=== PATIENT | female | born 1995 | race Caucasian/White ===

== ENCOUNTER 2020-04-25 02:04 | Emergency (ER) | payer SELFPAY ==
[2020-04-25] MEDS ORDERED: PROMETHAZINE HCL INJ 25 MG/1 ML VIAL IM ONE (02:39)
[2020-04-25] MEDS ORDERED: NORMAL SALINE 1000 ML 1,000 ML IV ONE (02:40)
--- NOTE | 2020-04-25 02:42 | ER Document Report ---
ED General - General Chief Complaint: Altered Mental Status Stated Complaint: ALTERED MENTAL STATUS Time Seen by Provider: 04/25/20 02:33 Notes: Patient is a 24-year-old female who comes to the emergency department for chief complaint of possible substance abuse. Reportedly patient was at a hotel and acting strangely, hotel staff called ambulance, EMS brought patient to the emergency department. Patient states that she was emotionally upset and "took a Xanax bar". She also reports that she drank "a shot of alcohol earlier in the night a while ago". She denies recreational drugs otherwise. She states she is not prescribed any medications. She denies diagnosed medical history. She denies . She denies any complaints at this time. Past Medical History - General Information source: Patient - Social History Smoking Status: Current Every Day Smoker Chew tobacco use (# tins/day): No Frequency of alcohol use: Social Drug Abuse: Marijuana, Prescription drugs Lives with: Family Family History: Reviewed & Not Pertinent Past Surgical History: Reports: Hx Herniorrhaphy - As a child - Immunizations Immunizations up to date: Yes Hx Diphtheria, Pertussis, Tetanus Vaccination: Yes Review of Systems - Review of Systems Constitutional: No symptoms reported EENT: No symptoms reported Cardiovascular: No symptoms reported Respiratory: No symptoms reported Gastrointestinal: No symptoms reported Genitourinary: No symptoms reported Female Genitourinary: No symptoms reported Musculoskeletal: No symptoms reported Skin: No symptoms reported Hematologic/Lymphatic: No symptoms reported Neurological/Psychological: See HPI Physical Exam - Vital signs Vitals: Temp 98.1 F 04/25/20 02:05 - Notes Notes: GENERAL: Patient is awake, cooperative, interactive, however she is very restless, chewing on her monitor cords, placing stickers on her forehead, slurring her speech HEAD: Normocephalic, atraumatic. EYES: Pupils equal, round, and reactive to light. Extraocular movements intact. ENT: Oral mucosa moist, tongue midline. Oropharynx unremarkable. Airway patent. NECK: Full range of motion. Supple. Trachea midline. No lymphadenopathy. LUNGS: Clear to auscultation bilaterally, no wheezes, rales, or rhonchi. No respiratory distress. Non-tender chest wall. HEART: Regular rate and rhythm. No murmur ABDOMEN: Soft, non-tender. Non-distended. EXTREMITIES: Moves all 4 extremities spontaneously. No edema, normal radial and dorsalis pedis pulses bilaterally. No cyanosis. BACK: no cervical, thoracic, lumbar midline tenderness. No saddle anesthesia, normal distal neurovascular exam. Moves all extremities in full range of motion. NEUROLOGICAL: Oriented to person, place, events, but difficult to understand history clearly. Slurred speech. Cranial nerves II through XII grossly intact. Strength 5/5 in all extremities. PSYCH: Very restless SKIN: Warm, dry, normal turgor. No rashes or lesions noted. Course - Re-evaluation Re-evalutation: 04/25/20 02:40 Patient restless, chewing on cords, pulling off monitor, trying to get out of bed. However she also has slow slurred speech and appears slightly drowsy. Patient certainly appears to be under the influence of something. She does not have pinpoint pupils, they are slightly dilated. She is not tachycardic or febrile. Blood pressure slightly borderline but patient is restless and it is difficult to take the blood pressure. Work-up pending, patient will be monitored. 04/25/20 06:15 Patient has been reevaluated twice. She is sleeping peacefully, easily aroused, but when she does so she is still very lethargic and still has some slurring of her words. Patient will need more time. Patient receiving IV fluids. CBC, chemistry unremarkable, test negative, alcohol negative. Patient denies SI or HI, patient will need conversation for disposition when she is completely sober. 04/25/20 08:00 Sign out given to Gideon Cartwright HOUSE RN pending disposition. - Vital Signs Vital signs: Temp Pulse Resp BP Pulse Ox 98.1 F 92/62 L 100 04/25/20 02:05 04/25/20 02:08 04/25/20 02:09 - Laboratory Results Result Diagrams: 04/25/20 04:42 04/25/20 04:42 Laboratory Results Interpreted: 04/25/20 04/25/20 04:42 04:42 WBC 11.3 H Eos % (Auto) 10.2 H Absolute Eos (auto) 1.1 H AST 42 H Acetaminophen < 10 L Critical Laboratory Results Reviewed: No Critical Results - Radiology Results Critical Radiology Results Reviewed: No Critical Results - EKG Interpretation by Me Additional EKG results interpreted by me: EKG shows sinus rhythm at a rate of 55, QTC 452, normal axis, no T wave inversions or ST segment changes in consecutive leads Discharge - Discharge Clinical Impression: Substance abuse Condition: Stable Disposition: HOME, SELF-CARE Additional Instructions: Do not take any medications that are not prescribed to you, avoid any illegal/recreational substances, these are extremely dangerous and continued use will lead to your . Follow-up with primary care for additional evaluation and management. Return for any concerning symptoms including difficulty breathing chest pain, vomiting, fever, or if something is not right. Forms: Return to Work
[2020-04-25 04:57] LABS: ABSOLUTE BASOPHILS # (AUTO) 0.1 10^3/uL (0.0-0.2); ABSOLUTE EOSINOPHILS # (AUTO) 1.1 10^3/uL (0.0-0.6); ABSOLUTE LYMPHOCYTES (AUTO) 4.5 10^3/uL (0.5-4.7); ABSOLUTE MONOCYTES (AUTO) 0.8 10^3/uL (0.1-1.4); ABSOLUTE NEUT (AUTO) 4.8 10^3/uL (1.7-8.2); BASOPHILS % (AUTO) 0.6 % (0-2); EOSINOPHILS % (AUTO) 10.2 % (0-6); HEMOGLOBIN 13.6 g/dL (12.0-15.5); LYMPHOCYTES % (AUTO) 39.5 % (13-45); MEAN CORPUSCULAR HEMOGLOBIN 29.3 pg (27.0-33.4); MEAN CORPUSCULAR HGB CONC 34.1 g/dL (32.0-36.0); MEAN CORPUSCULAR VOLUME 86 fl (80-97); MONOCYTES % (AUTO) 6.7 % (3-13); PLATELET COUNT 262 10^3/uL (150-450); RED BLOOD COUNT 4.65 10^6/uL (3.72-5.28); RED CELL DISTRIBUTION WIDTH 12.9 % (11.5-14.0); TOTAL CELLS COUNTED % (AUTO) 100 %; WHITE BLOOD COUNT 11.3 10^3/uL (4.0-10.5)
[2020-04-25 05:09] LABS: ALBUMIN 4.5 g/dL (3.5-5.0); ALKALINE PHOSPHATASE 68 U/L (38-126); ANION GAP 7 (5-19); ASPARTATE AMINO TRANSFERASE 42 U/L (14-36); BILIRUBIN,DIRECT 0.2 mg/dL (0.0-0.4); BILIRUBIN,TOTAL 0.6 mg/dL (0.2-1.3); BLOOD UREA NITROGEN 15 mg/dL (7-20); CALCIUM 9.8 mg/dL (8.4-10.2); CARBON DIOXIDE 30 mmol/L (22-30); CHLORIDE 100 mmol/L (98-107); GLUCOSE 94 mg/dL (75-110); POTASSIUM 4.4 mmol/L (3.6-5.0); SALICYLATE 2.2 mg/dL (2.0-20.0); TOTAL PROTEIN 7.7 g/dL (6.3-8.2)
[2020-04-25 05:19] LABS: ACETAMINOPHEN < 10 ug/mL (10-30); ALCOHOL < 10 mg/dL (NONE DETECTED)
--- NOTE | 2020-04-25 07:19 | EKG REPORT ---
SEVERITY:- OTHERWISE NORMAL ECG - SINUS BRADYCARDIA BORDERLINE RIGHT AXIS DEVIATION : Confirmed by: Luiz Man MD 25-Apr-2020 07:18:32
[2020-04-25 09:40] LABS: APPEARANCE,URINE CLEAR; BILIRUBIN,URINE NEGATIVE (NEGATIVE); COLOR,URINE ORANGE; GLUCOSE, URINE NEGATIVE (NEGATIVE); KETONES,URINE NEGATIVE (NEGATIVE); LEUKOCYTE ESTERASE,URINE NEGATIVE (NEGATIVE); NITRITE,URINE POSITIVE (NEGATIVE); PROTEIN,URINE NEGATIVE (NEGATIVE); URINE SPECIFIC GRAVITY 1.011; UROBILINOGEN,URINE NEGATIVE mg/dL (<2.0)
[2020-04-25 09:52] LABS: URINE AMPHETAMINES SCREEN NEGATIVE; URINE BARBITURATES SCREEN NEGATIVE; URINE COCAINE SCREEN NEGATIVE; URINE METHADONE SCREEN NEGATIVE; URINE PHENCYCLIDINE SCREEN NEGATIVE
[2020-04-25 09:54] LABS: URINE BENZODIAZEPINES SCREEN UNCONFIRMED POSITIVE; URINE MARIJUANA (THC) SCREEN UNCONFIRMED POSITIVE
--- NOTE | 2020-04-25 09:59 | RADIOLOGY REPORT (SQ) ---
EXAM DESCRIPTION: CT HEAD WITHOUT IMAGES COMPLETED DATE/TIME: 04/25/2020 9:40 am REASON FOR STUDY: AMS COMPARISON: None. TECHNIQUE: Axial images acquired through the brain without intravenous contrast. Images reviewed wi th bone, brain and subdural windows. Images stored on PACS. All CT scanners at this facility use dose modulation, iterative reconstruction, and/or weight based d osing when appropriate to reduce radiation dose to as low as reasonably achievable (ALARA). [facility]: Dose Right [facility]: CareDose [facility]: Dose Right [facility]: Teradose 4D [facility]: Verimatrix RADIATION DOSE: CT Rad equipment meets quality standard of care and radiation dose reduction techniq ues were employed. CTDIvol: 53.2 mGy. DLP: 1070 mGy-cm. mGy. LIMITATIONS: None. FINDINGS: VENTRICLES: Normal size and contour. CEREBRUM: No masses. No hemorrhage. No midline shift. No evidence for acute infarction. Normal gra y/white matter differentiation. No areas of low density in the white matter. CEREBELLUM: No masses. No hemorrhage. No alteration of density. No evidence for acute infarction. EXTRAAXIAL SPACES: No fluid collections. No masses. ORBITS AND GLOBE: No intra- or extraconal masses. Normal contour of globe without masses. CALVARIUM: No fracture. PARANASAL SINUSES: No fluid or mucosal thickening. Scattered ethmoid air cell opacities are demonstr ated. SOFT TISSUES: No mass or hematoma. OTHER: No other significant finding. IMPRESSION: NORMAL BRAIN CT WITHOUT CONTRAST. EVIDENCE OF ACUTE STROKE: NO. COMMENT: Quality ID # [id number]: Final reports with documentation of one or more dose reduction techniques (e.g., Automated exposure control, adjustment of the mA and/or kV according to patient size, use of iterative reconstruction technique) TECHNICAL DOCUMENTATION: JOB ID: [id number] 2010 [employer]- All Rights Reserved Reading location - IP/workstation name: [id number]
[2020-04-25] MEDS ORDERED: CEPHALEXIN 500 MG CAPSULE PO ONE (12:56)
[2020-04-25 13:21] VITALS: BP 113/51
--- NOTE | 2020-04-25 17:37 | PSYCHOLOGICAL NOTE ---
Psych Note - Psych Note Date seen by psych provider: 04/25/20 Time seen by psych provider: 10:44 Psych Note: Reason for Consult: unknown; substance use [id number] Patient is a 24 year old female who was admitted to the ED via EMS. She denies suicidal and homicidal ideation, plan, and intent. She reports being at a hotel prior to coming here, but is not entirely sure why she came to the ED. Patient reports no mental health history. She denies suicide attempts or medication management. She reports she went to rehab a few years ago. She reports using opioids such as heroine and fentanyl, Xanax bars, and weed. When asked who patient lives with, she notes she is homeless and has been staying in a hotel with her boyfriend. Patient cannot find her cell phone and presents upset about not knowing where it is or how to get in touch with her boyfriend. She states she has a friend who lives off [facility] and states this is a good friend named, Anabelle. She was picked up by EMS at [facility] in [place], and is worried about her belongings and cell phone still being there. She continues to deny suicidal ideation, plan, and intent. Collateral: Clinician spoke to nurse who spoke to patients father. He reported history of substance use and has been like this 4 times in the past several weeks. He reported no safety concerns and no history of SI/HI and states patient continues to use illegal drugs. He resides in [place] and is unable to pick up and delivery driver patient. Patient is observed to have pal[place]ino and will have a cab called for her. Patient was alert and oriented to self, person, place, time and situation. Mood was confused with congruent affect. She denies current suicidal and homicidal ideation, plan, and intent. Patient did not appear to be responding to internal stimuli as evidenced by fair eye contact and answering questions appropriately when addressed. Thought processes are disorganized. Conversational speech was within normal limits for rate, tone and prosody. Intellectual abilities are estimated to be average. Insight and impulse control were poor as evidenced by continued drug use. She demonstrates future forward goal oriented thinking as she talks about going back to the hotel to try and use a computer to contact her boyfriend or getting her cell phone back. Clinical Presentation: drug use IVC Criteria per [place] GS 122C Dangerous to others Within the relevant past the individual No has inflicted or attempted to inflict or threatened to inflict serious bodily harm on another AND No that there is a reasonable probability that this conduct will be repeated. OR No has acted in such a way as to create a substantial risk of serious bodily harm to another AND No that there is a reasonable probability that this conduct will be repeated. OR No has engaged in extreme destruction of property AND NO that there is a reasonable probability that this conduct will be repeated. Previous episodes of dangerousness to others, when applicable, may be considered when determining reasonable probability of future dangerous conduct. Clear, cogent, and convincing evidence that an individual has committed a homicide in the relevant past is prima facie evidence of dangerousness to others. Dangerous to self Within the relevant past the individual has done any of the following: acted in such a way as to show ALL of the following: No The individual would be unable without care, supervision, and the continued assistance of others not otherwise available, to exercise self- control, judgment, and discretion in the conduct of the individual's daily responsibilities and social relations or to satisfy the individual's need for nourishment, personal or medical care, chcf, or self-protection and safety. AND No There is a reasonable probability of the individual suffering serious physical debilitation within the near future unless adequate treatment is given. A showing of behavior that is grossly irrational, of actions that the individual is unable to control, of behavior that is grossly inappropriate to the situation, or of other evidence of severely impaired insight and judgment shall create a prima facie inference that the individual is unable to care for himself or herself. OR No has attempted suicide or threatened suicide AND No that there is a reasonable probability of suicide unless adequate treatment is given OR No has mutilated himself or herself or attempted to mutilate himself or herself AND No that there is a reasonable probability of serious self-mutilation unless adequate treatment is given. NOTE: Previous episodes of dangerousness to self, when applicable, may be considered when determining reasonable probability of physical debilitation, suicide, or self-mutilation. Impression\plan: Patient is cleared from psychiatric services. She does not meet criteria for IVC. Patient reports continued illegal drug use. She denies suicidal and homicidal ideation, plan, and intent. Patient demonstrates future forward goal oriented thinking as she talks about getting her cell phone and meeting back up with her boyfriend. Patient reports ongoing drug use, but declines assistance with detox/ rehab. She was given information on [facility], however states she would like to go home and get some things. Patient was reminded [facility] center is nearby, voluntary, it is walking distance, and they have supplies to meet her basic needs. She stated she would look into it. Patient was given community resources for detox and substance use, mobile crisis with [facility] and [facility], and online NA meeting options. At this time, she continues to decline assistance in trying to be admitted to [facility], voluntarily. Patient has money to pay for a cab and plans to go back to the hotel she was staying at, [facility], in [place], [place]. Patient was recommended to abstain from drug use and follow up, voluntarily, with a provider or detox facility in the community. She was recommended if her symptoms return or worsen to return to the ED or utilize mobile crisis. Dr. Leslie was consulted to care management of this patient; attending physicians in agreement with recommendations and disposition.
== END 2020-04-25 13:20 | disposition home or self-care (01) ==
LOC: ER 02:04
DX: F12.10 Cannabis abuse, uncomplicated (principal); F17.200 Nicotine dependence, unspecified, uncomplicated; F19.10 Other psychoactive substance abuse, uncomplicated; N39.0 Urinary tract infection, site not specified; Z59.0 Homelessness; R45.1 Restlessness and agitation; R47.81 Slurred speech
CPT/HCPCS: 93005; 99285; 96372; 96360; 96361; 36415; 80307 ×4; 84703; 85025; 80053; 81001; 70450; 93010; J2550; J7030